=== PATIENT | female | born 1970 | race Caucasian/White ===

== ENCOUNTER 2024-10-26 08:11 | Day surgery (SDC) | payer OTHER ==
[~2024-10-26] VITALS: Ht 167.6 cm; Wt 64.5 kg
[~2024-10-26 08:11] MED LIST: ATORVASTATIN CA10 MG PO; FLUOXETINE HYDR20 MG PO; LISINOPRIL2.5 MG PO; METFORMIN500 M2 PO; MOUNJARO; ONDANSETRON4 MG PO; OZEMPIC2 MG SC
[2024-10-26] MEDS ORDERED: FAMOTIDINE 10MG/ML 2ML SDV IV ONE (08:13)
[2024-10-26] MEDS ORDERED: SODIUM CHLORIDE 0.9% 1,000 ML IV ONE (08:14)
[2024-10-26 11:09] VITALS: BP 134/77
[2024-10-26] MEDS ORDERED: PROPOFOL 200 MG/20 ML VIAL IV ONE (12:51)
[2024-10-26] MEDS ORDERED: LIDOCAINE HCL 2% 2ML SDV IV ONE (12:51)
[2024-10-26] MEDS ORDERED: GLYCOPYRROLATE 0.2 MG/ML IV ONE (12:51)
== END 2024-10-26 11:25 | disposition home or self-care (01) | DRG 392 ==
LOC: ENDO 08:11 → ORM 10:15 → ENDO 10:40
PROVIDERS: ATTEND Surgery
PROC: 0DJD8ZZ Inspection of Lower Intestinal Tract, Via Natural or Artificial Opening Endoscopic (ICD-10-PCS; principal; 2024-10-26)
DX: R19.5 Other fecal abnormalities (principal); I10 Essential (primary) hypertension; E11.9 Type 2 diabetes mellitus without complications; E78.5 Hyperlipidemia, unspecified; Z80.0 Family history of malignant neoplasm of digestive organs; Z79.84 Long term (current) use of oral hypoglycemic drugs
CPT/HCPCS: J1596